=== PATIENT | male | born 1960 | race Caucasian/White ===

== ENCOUNTER 2020-09-21 17:47 | Emergency (ER) | payer OTHER ==
[~2020-09-21 17:47] MED LIST: NORFLEX 100 MG100 MG PO
[2020-09-21 19:00] LABS: HEMOGLOBIN 13.2 gm/dl (14.0-17.5); RED BLOOD COUNT 4.54 M/UL (4.20-5.50)
== END 2020-09-21 21:20 | disposition home or self-care (01) ==
LOC: ER1 17:47
PROVIDERS: Physician Assistant Medical
DX: R60.0 Localized edema (principal); I12.9 Hypertensive chronic kidney disease with stage 1 through stage 4 chronic kidney disease, or unspecified chronic kidney disease; E11.22 Type 2 diabetes mellitus with diabetic chronic kidney disease; N18.9 Chronic kidney disease, unspecified; Z79.4 Long term (current) use of insulin; Z88.8 Allergy status to other drugs, medicaments and biological substances; Z88.0 Allergy status to penicillin
CPT/HCPCS: 71045; 80053; 82550; 82553; 83874; 83880; 84484; 85025; 85379; 85610; 93005; 96374; 99284; J1650

== ENCOUNTER → 2020-09-24 | Outpatient (CLI) | payer OTHER | LOC: US 13:32 | DX: M79.606 Pain in leg, unspecified (principal); M79.89 Other specified soft tissue disorders | CPT/HCPCS: 93970 ==